=== PATIENT | male | born 2000 | race Caucasian/White ===

== ENCOUNTER 2025-03-11 17:18 | Inpatient (IN) | payer MEDICAID ==
[~2025-03-11] VITALS: Ht 172.7 cm; Wt 54.0 kg
[2025-03-11] MEDS ORDERED: ONDANSETRON HCL/PF 4 MG/2 ML VIAL ONE ×3 (17:29→21:08)
[2025-03-11] MEDS: IV NS 0.9% 1,000 ML BAG IV ONE ×2 (17:30→19:30)
[2025-03-11] MEDS: ONDANSETRON HCL/PF 4 MG/2 ML VIAL IV ONE ×2 (17:30→18:50)
[2025-03-11 17:54] LABS: FRACTIONATED INSPIRED OXYGEN-V 21.0 %; VBG BASE EXCESS -15.0 mmol/L (-2.0-3.0); VBG HCO3 10.7 mmol/L (22.0-29.0); VBG MetHb 0.5 % (0.5-1.5); VBG OXYGEN SATURATION 53.0 % (60.0-85.0); VBG PCO2 25.9 mmHg (38.0-54.0); VBG PH 7.232 (7.320-7.430); VBG PO2 31.5 mmHg (23.0-48.0); VBG TOTAL HEMOGLOBIN 15.6 G/dL (13.5-17.5)
[2025-03-11 18:00] LABS: PLATELET COUNT (AUTO) 224 K/uL (150-450); RED BLOOD CELL COUNT(AUTO) 4.70 MIL/uL (4.5-6.0); RED CELL DISTRIBUTION WIDTH 12.9 % (11.5-15.0); WHITE BLOOD COUNT (AUTO) 15.8 K/uL (4.3-11.0)
[2025-03-11 18:29] LABS: CALCIUM, SERUM 9.6 mg/dL (8.5-10.1); CREATININE 1.2 mg/dL (0.6-1.3); SODIUM SERUM 134 mmol/L (136-145); UREA NITROGEN, BLOOD 20 mg/dL (7-18)
[2025-03-11 18:33] LABS: ASPARTATE AMINOTRANSFERASE 34 U/L (15-37); TOTAL PROTEIN, SERUM 8.0 g/dL (6.4-8.2)
[2025-03-11 18:34] LABS: ALCOHOL, BLOOD < 3 mg/dL (0-10)
[2025-03-11] MEDS ORDERED: INSU100I24 SQ (18:45)
[2025-03-11] MEDS ORDERED: INSU100I14 SQ (18:45)
[2025-03-11 18:50] LABS: ACETONE, SERUM MODERATE (NEGATIVE)
[2025-03-11] MEDS ORDERED: INSULIN REGULAR, HUMAN 100 UNITS in IV NS 0.9% 100 ML IV PRN (19:00)
[2025-03-11] MEDS ORDERED: MAG HYDROX/AL HYDROX/SIMETH 30 ML UDC PO PRN (19:00)
[2025-03-11] MEDS ORDERED: MAGNESIUM HYDROXIDE 30 ML UDC PO PRN (19:00)
[2025-03-11] MEDS ORDERED: ACETAMINOPHEN 325 MG TABLET PO PRN (19:00)
[2025-03-11 19:02] LABS: APPEARANCE,URINE CLEAR (CLEAR); BLOOD, URINE NEGATIVE Ery/uL (NEGATIVE); LEUKOCYTE ESTERASE ,URINE NEGATIVE (NEGATIVE); NITRITE, URINE NEGATIVE (NEGATIVE); UGLUCOSE 3+ mg/dL (NEGATIVE)
[2025-03-11 19:16] LABS: AMPHETAMINE, URINE NEGATIVE (NEGATIVE); BARBITURATE, URINE NEGATIVE (NEGATIVE); BENZODIAZEPINE, URINE NEGATIVE (NEGATIVE); CANNABINOID, URINE POSITIVE (NEGATIVE); COCCAINE, URINE NEGATIVE (NEGATIVE); OPIATE, URINE NEGATIVE (NEGATIVE)
[2025-03-11 19:18] LABS: ADD URINE CULTURE NO; SQUAMOUS EPITHELIAL CELL,UR 0-2 /HPF (None Seen)
[2025-03-11] MEDS: IV PREMIX NS +20MEQ KCL 1 L IV PRN (19:24)
[2025-03-11 19:46] LABS: CALCIUM, SERUM 8.9 mg/dL (8.5-10.1); CREATININE 1.1 mg/dL (0.6-1.3); SODIUM SERUM 137.0 mmol/L (136-145); UREA NITROGEN, BLOOD 20.0 mg/dL (7-18)
[2025-03-11 19:47] LABS: PHOSPHORUS 4.5 mg/dL (2.5-4.9)
[2025-03-11] MEDS ORDERED: MORPHINE SULFATE INJ 2 MG/ML DISP.SYRIN IV PRN (20:00)
[2025-03-11] MEDS: INSULIN REGULAR, HUMAN 100 UNIT in IV NS 0.9% 99 ML IV PRN (20:30)
[2025-03-11] MEDS: IV PREMIX NS +20MEQ KCL 1 L IV SCH (20:51)
[2025-03-11] MEDS: ONDANSETRON HCL/PF 4 MG/2 ML VIAL IVP PRN (21:08)
[2025-03-11 21:36] LABS: CALCIUM, SERUM 8.5 mg/dL (8.5-10.1); CREATININE 1.0 mg/dL (0.6-1.3); SODIUM SERUM 142.0 mmol/L (136-145); UREA NITROGEN, BLOOD 19.0 mg/dL (7-18)
[2025-03-11 21:39] LABS: PHOSPHORUS 3.8 mg/dL (2.5-4.9)
[2025-03-11] MEDS ORDERED: METOCLOPRAMIDE HCL 10 MG/2 ML VIAL ONE (22:30)
[2025-03-11] MEDS: METOCLOPRAMIDE HCL 10 MG/2 ML VIAL IV PRN (22:33)
[2025-03-11 23:11] LABS: CALCIUM, SERUM 9.1 mg/dL (8.5-10.1); CREATININE 1.1 mg/dL (0.6-1.3); SODIUM SERUM 144.0 mmol/L (136-145); UREA NITROGEN, BLOOD 19.0 mg/dL (7-18)
[2025-03-11 23:14] LABS: PHOSPHORUS 4.3 mg/dL (2.5-4.9)
[2025-03-12] VITALS (23 sets, daily range): BP systolic 105–154; BP diastolic 52–85; TEMP 97.8–98.4; O2SAT 97–100
[2025-03-12] MEDS ORDERED: IV NS 0.9% 1,000 ML IV SCH (00:30)
[2025-03-12] MEDS: IV 1/2NS 1000 ML 1,000 ML IV SCH (00:40)
[2025-03-12] MEDS: BLOOD SUGAR DIAGNOSTIC 1 EACH STRIP IN SCH (01:07)
[2025-03-12] MEDS: IV D5/0.45 NACL 1,000 ML IV PRN (02:38)
[2025-03-12 02:46] LABS: PLATELET COUNT (AUTO) 218 K/uL (150-450); RED BLOOD CELL COUNT(AUTO) 4.40 MIL/uL (4.5-6.0); RED CELL DISTRIBUTION WIDTH 13.0 % (11.5-15.0); WHITE BLOOD COUNT (AUTO) 19.4 K/uL (4.3-11.0)
[2025-03-12 02:57] LABS: CALCIUM, SERUM 8.7 mg/dL (8.5-10.1); CREATININE 1.1 mg/dL (0.6-1.3); PHOSPHORUS 4.1 mg/dL (2.5-4.9); SODIUM SERUM 144.0 mmol/L (136-145); UREA NITROGEN, BLOOD 15.0 mg/dL (7-18)
[2025-03-12] MEDS ORDERED: PANTOPRAZOLE 40 MG TABLET.DR PO SCH (07:30)
[2025-03-12 07:47] LABS: CALCIUM, SERUM 8.6 mg/dL (8.5-10.1); CREATININE 1.0 mg/dL (0.6-1.3); PHOSPHORUS 3.2 mg/dL (2.5-4.9); SODIUM SERUM 142.0 mmol/L (136-145); UREA NITROGEN, BLOOD 14.0 mg/dL (7-18)
[2025-03-12 10:36] LABS: CALCIUM, SERUM 8.7 mg/dL (8.5-10.1); CREATININE 1.1 mg/dL (0.6-1.3); PHOSPHORUS 2.9 mg/dL (2.5-4.9); SODIUM SERUM 140.0 mmol/L (136-145); UREA NITROGEN, BLOOD 15.0 mg/dL (7-18)
[2025-03-12] MEDS: ONDANSETRON HCL/PF 4 MG/2 ML VIAL IVP PRN (11:17)
[2025-03-12 15:09] LABS: CALCIUM, SERUM 8.7 mg/dL (8.5-10.1); CREATININE 1.0 mg/dL (0.6-1.3); PHOSPHORUS 2.6 mg/dL (2.5-4.9); SODIUM SERUM 142.0 mmol/L (136-145); UREA NITROGEN, BLOOD 12.0 mg/dL (7-18)
[2025-03-12 19:41] LABS: CALCIUM, SERUM 8.9 mg/dL (8.5-10.1); CREATININE 0.9 mg/dL (0.6-1.3); PHOSPHORUS 2.0 mg/dL (2.5-4.9); SODIUM SERUM 143.0 mmol/L (136-145); UREA NITROGEN, BLOOD 10.0 mg/dL (7-18)
[2025-03-12 23:08] LABS: CALCIUM, SERUM 9.1 mg/dL (8.5-10.1); CREATININE 0.9 mg/dL (0.6-1.3); PHOSPHORUS 1.7 mg/dL (2.5-4.9); SODIUM SERUM 142.0 mmol/L (136-145); UREA NITROGEN, BLOOD 9.0 mg/dL (7-18)
[2025-03-13] VITALS (18 sets, daily range): BP systolic 78–160; BP diastolic 58–95; TEMP 94.7–98.8; O2SAT 97–100
[2025-03-13] MEDS ORDERED: Sodium Phosphate 15 MMOL in IV NS 0.9% 245 ML IV SCH
[2025-03-13] MEDS: POTASSIUM CL. PREMIX PERIPHER. 50 ML IV SCH (00:56)
[2025-03-13] MEDS: NEUTRA PHOS 1 POWD.PACKET PO ONE (01:11)
[2025-03-13] MEDS ORDERED: IV NS 0.9% 250 ML IV PRN (01:30)
[2025-03-13 03:14] LABS: CALCIUM, SERUM 8.9 mg/dL (8.5-10.1); CREATININE 1.0 mg/dL (0.6-1.3); PHOSPHORUS 2.2 mg/dL (2.5-4.9); SODIUM SERUM 143.0 mmol/L (136-145); UREA NITROGEN, BLOOD 8.0 mg/dL (7-18)
[2025-03-13 07:15] LABS: CALCIUM, SERUM 9.0 mg/dL (8.5-10.1); CREATININE 0.8 mg/dL (0.6-1.3); PHOSPHORUS 2.0 mg/dL (2.5-4.9); SODIUM SERUM 142.0 mmol/L (136-145); UREA NITROGEN, BLOOD 8.0 mg/dL (7-18)
[2025-03-13] MEDS ORDERED: DEXTROSE 50%-WATER 50 ML DISP.SYRIN IV PRN (08:30)
[2025-03-13] MEDS ORDERED: *INSULIN REGULAR(HUMULIN R)HUM 100 UNIT/ML VIAL SQ PRN (08:30)
[2025-03-13 08:31] LABS: PLATELET COUNT (AUTO) 188 K/uL (150-450); RED BLOOD CELL COUNT(AUTO) 4.03 MIL/uL (4.5-6.0); RED CELL DISTRIBUTION WIDTH 12.8 % (11.5-15.0); WHITE BLOOD COUNT (AUTO) 12.7 K/uL (4.3-11.0)
[2025-03-13] MEDS: BLOOD SUGAR DIAGNOSTIC 1 EACH STRIP IN SCH (08:37)
[2025-03-13] MEDS: POTASSIUM CHLORIDE 20 MEQ TAB.PRT.SR PO ONE ×2 (08:39→12:22)
[2025-03-13] MEDS: INSULIN GLARGINE, 100 UNIT/ML CARTRIDGE SQ SCH (10:12)
[2025-03-13 11:43] LABS: CALCIUM, SERUM 8.6 mg/dL (8.5-10.1); CREATININE 0.9 mg/dL (0.6-1.3); SODIUM SERUM 140.0 mmol/L (136-145); UREA NITROGEN, BLOOD 7.0 mg/dL (7-18)
[2025-03-13] MEDS: MORPHINE SULFATE INJ 4 MG/ML DISP.SYRIN IV PRN (13:08)
[2025-03-13] MEDS: K PHOS NEUTRAL 250 MG TABLET PO ONE (16:52)
[2025-03-13] MEDS: INSULIN REGULAR, HUMAN 100 UNIT/ML 3 ML VIAL SQ PRN (16:53)
[2025-03-13] MEDS: IV 1/2NS 1000 ML 1,000 ML IV ONE (23:47)
[2025-03-14 08:00] VITALS: BP 145/88; TEMP 98.1; O2SAT 100
[2025-03-14] MEDS: POTASSIUM CHLORIDE 20 MEQ TAB.PRT.SR PO ONE (08:57)
[2025-03-15] MEDS ORDERED: ONDA4TAB11 PO (05:21)
[2025-03-15] MEDS ORDERED: POTA20TA83 PO (05:21)
== END 2025-03-14 11:37 | disposition home or self-care (01) | DRG 420 ==
LOC: ER 17:20 → ICU IN 20:33 → ICU 22:36 → MED 03-13 13:24
PROVIDERS: ADMIT Internal Medicine; ATTEND Internal Medicine
DX: E10.10 Type 1 diabetes mellitus with ketoacidosis without coma (principal); E87.1 Hypo-osmolality and hyponatremia; D72.829 Elevated white blood cell count, unspecified; E10.43 Type 1 diabetes mellitus with diabetic autonomic (poly)neuropathy; E86.0 Dehydration; F12.10 Cannabis abuse, uncomplicated; K31.84 Gastroparesis; Z79.4 Long term (current) use of insulin; F17.290 Nicotine dependence, other tobacco product, uncomplicated
CPT/HCPCS: 36415; 80048-TC; 80053-TC; 81001; 82010-TC; 82803-TC; 82962-TC; 83690-TC; 83735-TC; 84100-TC; 85025-TC; 87081-TC; A4223; A9563; G0378; G0480; J1815; J2270; J2405; J2765; J3480; J3490; J7030; J7040; J7050

== ENCOUNTER 2025-03-15 03:46 | Emergency (ER) | payer MEDICAID ==
[~2025-03-15] VITALS: Ht 175.3 cm; Wt 59.0 kg
[~2025-03-15 03:46] MED LIST: INSU100I14 SQ; INSU100I24 SQ
[2025-03-15] MEDS ORDERED: ONDANSETRON HCL/PF 4 MG/2 ML VIAL ONE (04:27)
[2025-03-15] MEDS: ONDANSETRON HCL/PF 4 MG/2 ML VIAL IVP ONE (04:27)
[2025-03-15] MEDS: IV NS 0.9% 1,000 ML BAG IV ONE (04:27)
[2025-03-15 04:37] LABS: PLATELET COUNT (AUTO) 185 K/uL (150-450); RED BLOOD CELL COUNT(AUTO) 4.45 MIL/uL (4.5-6.0); RED CELL DISTRIBUTION WIDTH 12.4 % (11.5-15.0); WHITE BLOOD COUNT (AUTO) 7.2 K/uL (4.3-11.0)
[2025-03-15 04:46] LABS: CALCIUM, SERUM 8.8 mg/dL (8.5-10.1); CREATININE 0.7 mg/dL (0.6-1.3); SODIUM SERUM 135.0 mmol/L (136-145); UREA NITROGEN, BLOOD 6.0 mg/dL (7-18)
[2025-03-15 04:54] LABS: ASPARTATE AMINOTRANSFERASE 27.0 U/L (15-37); TOTAL PROTEIN, SERUM 6.7 g/dL (6.4-8.2)
[2025-03-15] MEDS: POTASSIUM CHLORIDE 20 MEQ TAB.PRT.SR PO ONE (05:02)
[2025-03-15] MEDS ORDERED: POTASSIUM CHLORIDE 20 MEQ TAB.PRT.SR PO ONE (05:02)
[2025-03-15] MEDS ORDERED: POTA20TA83 PO (05:21)
[2025-03-15] MEDS ORDERED: ONDA4TAB11 PO (05:21)
[2025-03-15 05:35] VITALS: BP 132/80; TEMP 98.6; O2SAT 95
== END 2025-03-15 05:36 | disposition home or self-care (01) ==
LOC: ER 03:52
DX: R11.2 Nausea with vomiting, unspecified (principal); E11.9 Type 2 diabetes mellitus without complications; Z79.4 Long term (current) use of insulin; Z79.899 Other long term (current) drug therapy
CPT/HCPCS: 99283; 96374; 96361; 85025; 80048; 83690; 80076; 36415; J2405; J7030